=== PATIENT | male | born 1940 | race Caucasian/White ===

== ENCOUNTER 2016-12-23 17:33 | Inpatient (IN) | payer OTHER, MEDICAID ==
[~2016-12-23] VITALS: Ht 154.9 cm; Wt 44.0 kg
[2016-12-23 21:50] VITALS: BP 135/97; PULSE 115; RESP 19; TEMP 97.8; O2SAT 93
[2016-12-23] MEDS ORDERED: LEVO500T20 PO (23:44)
[2016-12-23] MEDS ORDERED: IPRA3AMP9 INH (23:44)
[2016-12-23] MEDS ORDERED: CALC500T3 PO (23:45)
[2016-12-23] MEDS ORDERED: OMEG1CAP55 PO (23:46)
[2016-12-23] MEDS ORDERED: MULT-1100 PO (23:50)
[2016-12-23] MEDS ORDERED: MEGE40TA PO (23:50)
[2016-12-23] MEDS ORDERED: MIRT30TA3 PO (23:50)
[2016-12-23 23:58] VITALS: BP 107/58; PULSE 121; RESP 20; TEMP 99.2; O2SAT 90
[2016-12-24] VITALS (8 sets, daily range): BP systolic 67–128; BP diastolic 40–67; PULSE 85–109; RESP 14–30; TEMP 98–101.2; O2SAT 90–96
[2016-12-24] MEDS: IPRATROPIUM/ALBUTEROL SULFATE 3 ML AMPUL.NEB INH SCH ×6 (03:14→23:00)
[2016-12-24 06:54] LABS: ANION GAP 3 (5-15); CALCIUM 8.4 mg/dL (8.4-11.0); CHLORIDE 108 mmol/L (98-107); GLUCOSE 91 mg/dL (70-99); POTASSIUM 3.6 mmol/L (3.5-5.1); SODIUM SERUM 137 mmol/L (136-145)
[2016-12-24 06:55] LABS: ALANINE AMINOTRANSFERASE 19 U/L (12-78); ALBUMIN 1.8 g/dL (3.4-4.8); ASPARTATE AMINOTRANSFERASE 41 U/L (10-37); CREATININE 0.76 mg/dL (0.55-1.30); PHOSPHORUS 2.9 mg/dL (2.7-4.5); TOTAL BILIRUBIN 0.6 mg/dL (0.0-1.0); TOTAL PROTEIN, SERUM 7.3 g/dL (6.4-8.3); UREA NITROGEN, BLOOD 11 mg/dL (8-21)
[2016-12-24 07:02] LABS: HEMATOCRIT 28.8 % (36-54); HEMOGLOBIN 9.7 g/dL (14.0-18.0); MEAN CORPUSCULAR HEMOGLOBIN 31 pg (27-31); MEAN CORPUSCULAR HGB CONC 34 % (32-36); MEAN CORPUSCULAR VOLUME 91 fL (79.0-98.0); PLATELET COUNT (AUTO) 329 K/uL (130-430); RED BLOOD CELL COUNT(AUTO) 3.16 MIL/uL (4.2-6.2); RED CELL DISTRIBUTION WIDTH 14.1 % (9.0-15.0); WHITE BLOOD COUNT (AUTO) 17.3 K/uL (4.8-10.8)
[2016-12-24 08:46] LABS: ATYPICAL LYMPHOCYTES % 0 % (0-0); BAND % (MANUAL) 6 % (0-6); BASOPHILS % (MANUAL) 0 % (0-2); EOSINOPHILS % (MANUAL) 0 % (0-7); LYMPHOCYTES % (MANUAL) 8 % (20-46); MONOCYTES % (MANUAL) 6 % (0-11)
[2016-12-24] MEDS ORDERED: LEVOFLOXACIN 500 MG TABLET PO SCH (09:00)
[2016-12-24] MEDS: MEGESTROL ACETATE 40 MG TABLET PO SCH ×2 (09:13→20:52)
[2016-12-24] MEDS: MULTIVITS,CA,MINERALS/IRON/FA 1 TABLET PO SCH (09:13)
[2016-12-24] MEDS: CALCIUM 500 MG/TAB PO SCH ×2 (09:13→20:51)
[2016-12-24] MEDS: OMEGA-3/DHA/EPA/FISH OIL 1 GM CAPSULE PO SCH ×2 (09:13→20:52)
[2016-12-24 12:59] LABS: BILIRUBIN,URINE 1+ (NEGATIVE); BLOOD, URINE 2+ (NEGATIVE); CLARITY/URINE HAZY (CLEAR); COLOR,URINE YELLOW (YELLOW); GLUCOSE,URINE NEGATIVE (NEGATIVE); KETONES,URINE TRACE (NEGATIVE); LEUKOCYTE ESTERASE ,URINE 3+ (NEGATIVE); NITRITE, URINE NEGATIVE (NEGATIVE); PROTEIN URINE 1+ (NEGATIVE)
[2016-12-24 13:22] LABS: BACTERIA,URINE MODERATE /HPF (None Seen); WBC,URINE >100 /HPF (0-3)
[2016-12-24 13:48] LABS: INR 1.4 (0.80-1.20); PROTHROMBIN TIME 14.9 SECS (9.5-12.5)
[2016-12-24] MEDS: D5NS 1,000 ML IV SCH (16:23)
[2016-12-24] MEDS ORDERED: ALBUMIN HUMAN 25% 200 ML IV ONE (20:30)
[2016-12-24] MEDS: MIRTAZAPINE 15 MG TABLET PO SCH (20:52)
[2016-12-24] MEDS: ACETAMINOPHEN 500 MG TABLET PO PRN (20:52)
[2016-12-24] MEDS ORDERED: metroNIDAZOLE 500 mg/NS 200 ML IV ONE (23:49)
[2016-12-24] MEDS ORDERED: CEFEPIME 1 GM/VIAL (MAXIPIME) ONE (23:49)
[2016-12-25] VITALS (25 sets, daily range): BP systolic 83–132; BP diastolic 20–90; PULSE 83–128; RESP 18–40; TEMP 98.1–101.2; O2SAT 91–100; Ht 154.9 cm; Wt 44.0 kg
[2016-12-25] MEDS: CEFEPIME 1 GM in D5W 50 ML IV SCH ×2 (00:04→05:21)
[2016-12-25] MEDS: metroNIDAZOLE 500 mg/NS 100 ML IV SCH ×4 (00:26→21:42)
[2016-12-25] MEDS ORDERED: NOREPINEPHRINE 4 MG/4 ML VIAL IV ONE ×2 (02:14→19:24)
[2016-12-25] MEDS: NOREPINEPHRINE BITARTRATE 4 MG in D5W 246 ML IV PRN ×2 (02:15→19:42)
[2016-12-25] MEDS: IPRATROPIUM/ALBUTEROL SULFATE 3 ML AMPUL.NEB INH SCH ×6 (03:48→23:42)
[2016-12-25 06:39] LABS: BASOPHILS # (AUTO) 0.1 K/uL (0.0-0.2); BASOPHILS % (AUTO) 0.3 % (0.0-2.0); EOSINOPHILS # (AUTO) 0.1 K/uL (0.0-0.4); EOSINOPHILS % (AUTO) 0.3 % (0.0-4.0); HEMOGLOBIN 9.3 g/dL (14.0-18.0); LYMPHOCYTES # (AUTO) 1.6 K/uL (1.0-5.5); LYMPHOCYTES % (AUTO) 9.4 % (20.5-51.5); MEAN CORPUSCULAR HEMOGLOBIN 30 pg (27-31); MEAN CORPUSCULAR HGB CONC 33 % (32-36); MEAN CORPUSCULAR VOLUME 89 fL (79.0-98.0); MONOCYTES % (AUTO) 5.9 % (1.7-9.3); NEUTROPHILS # (AUTO) 14.6 K/uL (1.8-7.7); NEUTROPHILS % (AUTO) 84.1 % (40.0-70.0); PLATELET COUNT (AUTO) 295 K/uL (130-430); RED BLOOD CELL COUNT(AUTO) 3.13 MIL/uL (4.2-6.2); RED CELL DISTRIBUTION WIDTH 14.2 % (9.0-15.0); WHITE BLOOD COUNT (AUTO) 17.4 K/uL (4.8-10.8)
[2016-12-25] MEDS: MULTIVITS,CA,MINERALS/IRON/FA 1 TABLET PO SCH (08:30)
[2016-12-25] MEDS: MEGESTROL ACETATE 40 MG TABLET PO SCH ×2 (08:30→21:14)
[2016-12-25] MEDS: CALCIUM 500 MG/TAB PO SCH ×2 (08:30→21:13)
[2016-12-25] MEDS: OMEGA-3/DHA/EPA/FISH OIL 1 GM CAPSULE PO SCH ×2 (09:09→21:13)
[2016-12-25] MEDS: D5NS 1,000 ML IV SCH ×2 (09:09→14:01)
[2016-12-25 09:20] LABS: % FREE PSA 15.2 % (.); FREE PSA 0.38 ng/mL; PROSTATE SPECIFIC AG TOTAL 2.5 ng/mL (0.0-4.0)
[2016-12-25] MEDS: ACETAMINOPHEN 500 MG TABLET PO PRN (12:11)
[2016-12-25] MEDS ORDERED: NS 500 ML IV ONE ×2 (13:15→18:45)
[2016-12-25] MEDS ORDERED: NACL 0.9% 1,000 ML IV ONE (13:15)
[2016-12-25] MEDS: MEROPENEM 1 GM in NS 100 ML IV SCH ×2 (14:04→21:14)
[2016-12-25] MEDS: VANCOMYCIN HCL 500 MG in NS 100 ML IV SCH (15:52)
[2016-12-25] MEDS: MIRTAZAPINE 15 MG TABLET PO SCH (21:13)
[2016-12-26] VITALS (24 sets, daily range): BP systolic 90–148; BP diastolic 35–82; PULSE 80–134; RESP 12–39; TEMP 97.7–100.3; O2SAT 90–99
[2016-12-26] MEDS: ACETAMINOPHEN 500 MG TABLET PO PRN (01:03)
[2016-12-26] MEDS: IPRATROPIUM/ALBUTEROL SULFATE 3 ML AMPUL.NEB INH SCH ×6 (03:03→23:32)
[2016-12-26] MEDS: D5NS 1,000 ML IV SCH ×3 (04:10→18:14)
[2016-12-26] MEDS: MEROPENEM 1 GM in NS 100 ML IV SCH ×3 (05:52→22:28)
[2016-12-26] MEDS: metroNIDAZOLE 500 mg/NS 100 ML IV SCH ×3 (06:24→22:54)
[2016-12-26 06:44] LABS: BASOPHILS % (AUTO) 0.2 % (0.0-2.0); EOSINOPHILS # (AUTO) 0.2 K/uL (0.0-0.4); EOSINOPHILS % (AUTO) 0.8 % (0.0-4.0); HEMATOCRIT 29.3 % (36-54); HEMOGLOBIN 9.8 g/dL (14.0-18.0); LYMPHOCYTES # (AUTO) 1.8 K/uL (1.0-5.5); LYMPHOCYTES % (AUTO) 9.3 % (20.5-51.5); MEAN CORPUSCULAR HEMOGLOBIN 31 pg (27-31); MEAN CORPUSCULAR HGB CONC 33 % (32-36); MEAN CORPUSCULAR VOLUME 94 fL (79.0-98.0); MONOCYTES # (AUTO) 1.1 K/uL (0.0-1.0); MONOCYTES % (AUTO) 5.5 % (1.7-9.3); NEUTROPHILS # (AUTO) 16.3 K/uL (1.8-7.7); NEUTROPHILS % (AUTO) 84.2 % (40.0-70.0); PLATELET COUNT (AUTO) 312 K/uL (130-430); RED BLOOD CELL COUNT(AUTO) 3.13 MIL/uL (4.2-6.2); RED CELL DISTRIBUTION WIDTH 14.7 % (9.0-15.0); WHITE BLOOD COUNT (AUTO) 19.4 K/uL (4.8-10.8)
[2016-12-26 06:56] LABS: ALANINE AMINOTRANSFERASE 13 U/L (12-78); ALBUMIN 2.2 g/dL (3.4-4.8); ANION GAP 4 (5-15); ASPARTATE AMINOTRANSFERASE 25 U/L (10-37); CALCIUM 8.2 mg/dL (8.4-11.0); CHLORIDE 112 mmol/L (98-107); CREATININE 0.71 mg/dL (0.55-1.30); GLUCOSE 116 mg/dL (70-99); POTASSIUM 3.2 mmol/L (3.5-5.1); SODIUM SERUM 141 mmol/L (136-145); TOTAL BILIRUBIN 0.4 mg/dL (0.0-1.0); TOTAL PROTEIN, SERUM 6.9 g/dL (6.4-8.3); UREA NITROGEN, BLOOD 8 mg/dL (8-21)
[2016-12-26] MEDS: MEGESTROL ACETATE 40 MG TABLET PO SCH ×2 (08:03→21:00)
[2016-12-26] MEDS: CALCIUM 500 MG/TAB PO SCH ×2 (08:03→21:00)
[2016-12-26] MEDS: OMEGA-3/DHA/EPA/FISH OIL 1 GM CAPSULE PO SCH ×2 (08:03→21:00)
[2016-12-26] MEDS: MULTIVITS,CA,MINERALS/IRON/FA 1 TABLET PO SCH (08:03)
[2016-12-26] MEDS ORDERED: KCL 20 mEq in 100 mL (PREMIX) 100 ML IV ONE (09:30)
[2016-12-26] MEDS: VANCOMYCIN HCL 500 MG in NS 100 ML IV SCH (15:57)
[2016-12-26] MEDS ORDERED: LORazepam 2 MG/ML VIAL ONE (17:58)
[2016-12-26] MEDS: LORazepam 2 MG/ML VIAL IVP PRN (18:13)
[2016-12-26] MEDS: MIRTAZAPINE 15 MG TABLET PO SCH (21:00)
[2016-12-26] MEDS ORDERED: ACETAMINOPHEN 325 MG SUPP.RECT RC PRN ×2 (21:15→22:00)
[2016-12-26] MEDS ORDERED: ACETAMINOPHEN 325 MG TABLET PO PRN (21:24)
[2016-12-26] MEDS: ACETAMINOPHEN 650 MG SUPP.RECT RC PRN (22:52)
[2016-12-27] VITALS (26 sets, daily range): BP systolic 67–148; BP diastolic 34–109; PULSE 34–144; RESP 11–47; TEMP 97.3–101.7; O2SAT 88–100
[2016-12-27] MEDS: IPRATROPIUM/ALBUTEROL SULFATE 3 ML AMPUL.NEB INH SCH ×6 (04:28→23:49)
[2016-12-27] MEDS: NOREPINEPHRINE BITARTRATE 4 MG in D5W 246 ML IV PRN (05:13)
[2016-12-27] MEDS: MEROPENEM 1 GM in NS 100 ML IV SCH ×3 (05:15→22:26)
[2016-12-27] MEDS ORDERED: NOREPINEPHRINE 4 MG/4 ML VIAL IV ONE (05:42)
[2016-12-27] MEDS: metroNIDAZOLE 500 mg/NS 100 ML IV SCH ×3 (05:52→21:15)
[2016-12-27 06:36] LABS: ANION GAP 3 (5-15); CHLORIDE 112 mmol/L (98-107); CREATININE 0.67 mg/dL (0.55-1.30); GLUCOSE 112 mg/dL (70-99); POTASSIUM 3.2 mmol/L (3.5-5.1); SODIUM SERUM 145 mmol/L (136-145); UREA NITROGEN, BLOOD 5 mg/dL (8-21)
[2016-12-27] MEDS: D5NS 1,000 ML IV SCH ×3 (06:40→22:26)
[2016-12-27 06:59] LABS: BASOPHILS # (AUTO) 0.1 K/uL (0.0-0.2); BASOPHILS % (AUTO) 0.7 % (0.0-2.0); EOSINOPHILS # (AUTO) 0.1 K/uL (0.0-0.4); EOSINOPHILS % (AUTO) 0.7 % (0.0-4.0); HEMATOCRIT 28.6 % (36-54); HEMOGLOBIN 9.6 g/dL (14.0-18.0); LYMPHOCYTES # (AUTO) 2.5 K/uL (1.0-5.5); LYMPHOCYTES % (AUTO) 14.1 % (20.5-51.5); MEAN CORPUSCULAR HEMOGLOBIN 31 pg (27-31); MEAN CORPUSCULAR HGB CONC 33 % (32-36); MEAN CORPUSCULAR VOLUME 94 fL (79.0-98.0); MONOCYTES # (AUTO) 0.9 K/uL (0.0-1.0); MONOCYTES % (AUTO) 5.1 % (1.7-9.3); NEUTROPHILS # (AUTO) 14.1 K/uL (1.8-7.7); PLATELET COUNT (AUTO) 331 K/uL (130-430); RED BLOOD CELL COUNT(AUTO) 3.05 MIL/uL (4.2-6.2); RED CELL DISTRIBUTION WIDTH 14.9 % (9.0-15.0); WHITE BLOOD COUNT (AUTO) 17.7 K/uL (4.8-10.8)
[2016-12-27] MEDS ORDERED: POTASSIUM CHLORIDE 40 MEQ in NS 250 ML IV ONE (08:30)
[2016-12-27 09:10] LABS: INR 1.4 (0.80-1.20); PROTHROMBIN TIME 14.8 SECS (9.5-12.5)
[2016-12-27] MEDS ORDERED: FUROSEMIDE 40 MG/4 ML VIAL IVP ONE (09:15)
[2016-12-27] MEDS ORDERED: CARVEDILOL 3.125 MG TABLET (COREG) PO ONE (09:30)
[2016-12-27] MEDS ORDERED: ADENOSINE 6MG/2ML VIAL ONE (09:45)
[2016-12-27] MEDS ORDERED: METOPROLOL TARTRATE 5 MG/5 ML VIAL IVP PRN (09:45)
[2016-12-27] MEDS ORDERED: ADENOSINE 6MG/2ML VIAL IVP ONE (09:45)
[2016-12-27] MEDS: MULTIVITS,CA,MINERALS/IRON/FA 1 TABLET PO SCH (09:49)
[2016-12-27] MEDS: CALCIUM 500 MG/TAB PO SCH ×2 (09:49→21:00)
[2016-12-27] MEDS: MEGESTROL ACETATE 40 MG TABLET PO SCH ×2 (09:49→21:00)
[2016-12-27] MEDS: OMEGA-3/DHA/EPA/FISH OIL 1 GM CAPSULE PO SCH ×2 (09:52→21:00)
[2016-12-27 09:59] LABS: NEUTROPHILS % (AUTO) 79.4 % (40.0-70.0)
[2016-12-27] MEDS: CARVEDILOL 3.125 MG TABLET (COREG) PO SCH (10:42)
[2016-12-27] MEDS: PHENYLEPHRINE HCL 30 MG in NS 247 ML IV PRN ×2 (13:32→19:04)
[2016-12-27] MEDS: ACETAMINOPHEN 650 MG SUPP.RECT RC PRN (13:48)
[2016-12-27] MEDS ORDERED: ALBUMIN HUMAN 25% 100 ML IV ONE (14:45)
[2016-12-27] MEDS: VANCOMYCIN HCL 500 MG in NS 100 ML IV SCH (16:23)
[2016-12-27] MEDS: methylPREDNISolone SOD SUCC/PF 62.5 MG/ML VIAL IVP SCH ×2 (18:16→23:17)
[2016-12-27] MEDS: GENTAMICIN 100 MG/ ISO-OSM 50 ML PREMIX IV SCH (18:17)
[2016-12-27] MEDS: MIRTAZAPINE 15 MG TABLET PO SCH (21:00)
[2016-12-27] MEDS: LORazepam 2 MG/ML VIAL IVP PRN (23:18)
[2016-12-28] VITALS (28 sets, daily range): BP systolic 85–129; BP diastolic 41–68; PULSE 72–98; RESP 12–31; TEMP 97.8–99.3; O2SAT 88–100
[2016-12-28] MEDS: PHENYLEPHRINE HCL 30 MG in NS 247 ML IV PRN ×4 (01:44→21:51)
[2016-12-28] MEDS: IPRATROPIUM/ALBUTEROL SULFATE 3 ML AMPUL.NEB INH SCH ×5 (04:05→23:16)
[2016-12-28] MEDS: methylPREDNISolone SOD SUCC/PF 62.5 MG/ML VIAL IVP SCH ×4 (05:10→23:50)
[2016-12-28] MEDS: metroNIDAZOLE 500 mg/NS 100 ML IV SCH ×3 (05:11→22:36)
[2016-12-28 06:18] LABS: HEMATOCRIT 30.2 % (36-54); HEMOGLOBIN 9.9 g/dL (14.0-18.0); MEAN CORPUSCULAR HEMOGLOBIN 30 pg (27-31); MEAN CORPUSCULAR HGB CONC 33 % (32-36); MEAN CORPUSCULAR VOLUME 93 fL (79.0-98.0); PLATELET COUNT (AUTO) 388 K/uL (130-430); RED BLOOD CELL COUNT(AUTO) 3.26 MIL/uL (4.2-6.2); RED CELL DISTRIBUTION WIDTH 15.2 % (9.0-15.0); WHITE BLOOD COUNT (AUTO) 24.8 K/uL (4.8-10.8)
[2016-12-28] MEDS: MEROPENEM 1 GM in NS 100 ML IV SCH ×3 (06:23→21:26)
[2016-12-28 06:28] LABS: ANION GAP 8 (5-15); CALCIUM 8.1 mg/dL (8.4-11.0); CHLORIDE 114 mmol/L (98-107); CREATININE 0.66 mg/dL (0.55-1.30); GLUCOSE 154 mg/dL (70-99); POTASSIUM 3.9 mmol/L (3.5-5.1); SODIUM SERUM 151 mmol/L (136-145); UREA NITROGEN, BLOOD 9 mg/dL (8-21)
[2016-12-28 06:40] LABS: ALANINE AMINOTRANSFERASE 15 U/L (12-78); ALBUMIN 2.4 g/dL (3.4-4.8); ASPARTATE AMINOTRANSFERASE 30 U/L (10-37); TOTAL BILIRUBIN 0.3 mg/dL (0.0-1.0); TOTAL PROTEIN, SERUM 6.7 g/dL (6.4-8.3)
[2016-12-28 08:03] LABS: ATYPICAL LYMPHOCYTES % 0 % (0-0); BAND % (MANUAL) 0 % (0-6); BASOPHILS % (MANUAL) 0 % (0-2); EOSINOPHILS % (MANUAL) 0 % (0-7); LYMPHOCYTES % (MANUAL) 4 % (20-46); MONOCYTES % (MANUAL) 0 % (0-11)
[2016-12-28] MEDS: CARVEDILOL 3.125 MG TABLET (COREG) PO SCH ×2 (09:06→20:23)
[2016-12-28] MEDS: 0.45% NACL 1,000 ML IV SCH (11:13)
[2016-12-28] MEDS: OMEGA-3/DHA/EPA/FISH OIL 1 GM CAPSULE PO SCH ×2 (12:32→20:22)
[2016-12-28] MEDS: MEGESTROL ACETATE 40 MG TABLET PO SCH ×2 (12:33→20:22)
[2016-12-28] MEDS: CALCIUM 500 MG/TAB PO SCH ×2 (14:08→20:22)
[2016-12-28] MEDS: MULTIVITS,CA,MINERALS/IRON/FA 1 TABLET PO SCH (14:09)
[2016-12-28 15:28] LABS: ABG TOTAL HEMOGLOBIN 9.6 G/dL (12.0-18.0); BLOOD GAS BASE EXCESS 1.5 mmol/L (-3.0-3.0); BLOOD GAS PH 7.266 (7.350-7.450); BLOOD O2Hb% 97.1 % (94.0-97.0)
[2016-12-28 15:29] LABS: BLOOD GAS HHB 1.7 % (0.0-6.0)
[2016-12-28] MEDS: VANCOMYCIN HCL 500 MG in NS 100 ML IV SCH (16:30)
[2016-12-28] MEDS: GENTAMICIN 100 MG/ ISO-OSM 50 ML PREMIX IV SCH (17:34)
[2016-12-28 17:40] LABS: ABG TOTAL HEMOGLOBIN 9.6 G/dL (12.0-18.0); BLOOD GAS COHb% 0.7 % (0.5-1.5); BLOOD GAS HHB 8.2 % (0.0-6.0); BLOOD GAS PH 7.332 (7.350-7.450); BLOOD O2Hb% 90.8 % (94.0-97.0)
[2016-12-28] MEDS: MIRTAZAPINE 15 MG TABLET PO SCH (20:23)
[2016-12-29] VITALS (32 sets, daily range): BP systolic 96–148; BP diastolic 38–81; PULSE 70–88; RESP 10–37; TEMP 97–98.6; O2SAT 93–100
[2016-12-29] MEDS: PHENYLEPHRINE HCL 30 MG in NS 247 ML IV PRN ×2 (03:13→10:50)
[2016-12-29] MEDS: IPRATROPIUM/ALBUTEROL SULFATE 3 ML AMPUL.NEB INH SCH ×6 (03:40→23:25)
[2016-12-29] MEDS: MEROPENEM 1 GM in NS 100 ML IV SCH (05:19)
[2016-12-29] MEDS: methylPREDNISolone SOD SUCC/PF 62.5 MG/ML VIAL IVP SCH ×3 (05:57→21:20)
[2016-12-29] MEDS: metroNIDAZOLE 500 mg/NS 100 ML IV SCH (05:58)
[2016-12-29 06:07] LABS: ALANINE AMINOTRANSFERASE 14 U/L (12-78); ASPARTATE AMINOTRANSFERASE 17 U/L (10-37); CALCIUM 8.1 mg/dL (8.4-11.0); CHLORIDE 116 mmol/L (98-107); CREATININE 0.66 mg/dL (0.55-1.30); GLUCOSE 185 mg/dL (70-99); POTASSIUM 3.7 mmol/L (3.5-5.1); SODIUM SERUM 145 mmol/L (136-145); TOTAL BILIRUBIN 0.3 mg/dL (0.0-1.0); TOTAL PROTEIN, SERUM 6.1 g/dL (6.4-8.3); UREA NITROGEN, BLOOD 16 mg/dL (8-21)
[2016-12-29 06:10] LABS: HEMATOCRIT 28.6 % (36-54); HEMOGLOBIN 9.1 g/dL (14.0-18.0); MEAN CORPUSCULAR HEMOGLOBIN 29 pg (27-31); MEAN CORPUSCULAR HGB CONC 32 % (32-36); MEAN CORPUSCULAR VOLUME 92 fL (79.0-98.0); PLATELET COUNT (AUTO) 347 K/uL (130-430); RED BLOOD CELL COUNT(AUTO) 3.11 MIL/uL (4.2-6.2); RED CELL DISTRIBUTION WIDTH 15.5 % (9.0-15.0)
[2016-12-29 06:16] LABS: ANION GAP < 3 (5-15)
[2016-12-29 06:52] LABS: WHITE BLOOD COUNT (AUTO) 30.9 K/uL (4.8-10.8)
[2016-12-29 07:35] LABS: BASOPHILS % (MANUAL) 0 % (0-2); EOSINOPHILS % (MANUAL) 0 % (0-7); LYMPHOCYTES % (MANUAL) 6 % (20-46); MONOCYTES % (MANUAL) 5 % (0-11)
[2016-12-29] MEDS: MULTIVITS,CA,MINERALS/IRON/FA 1 TABLET PO SCH (08:29)
[2016-12-29] MEDS: OMEGA-3/DHA/EPA/FISH OIL 1 GM CAPSULE PO SCH ×2 (08:29→21:17)
[2016-12-29] MEDS: CALCIUM 500 MG/TAB PO SCH ×2 (08:29→21:19)
[2016-12-29] MEDS: CARVEDILOL 3.125 MG TABLET (COREG) PO SCH ×2 (08:30→21:18)
[2016-12-29] MEDS: MEGESTROL ACETATE 40 MG TABLET PO SCH ×2 (08:30→21:19)
[2016-12-29 10:25] LABS: BLOOD GAS PH 7.387 (7.350-7.450)
[2016-12-29 10:26] LABS: ABG TOTAL HEMOGLOBIN 9.3 G/dL (12.0-18.0); BLOOD GAS BASE EXCESS 5.8 mmol/L (-3.0-3.0); BLOOD GAS COHb% 1.2 % (0.5-1.5); BLOOD GAS HHB 4.4 % (0.0-6.0); BLOOD O2Hb% 94.1 % (94.0-97.0)
[2016-12-29] MEDS: 0.45% NACL 1,000 ML IV SCH (10:44)
[2016-12-29] MEDS: PIPERACILLIN/TAZO 4.5GM/DEX-IS 100 ML IV SCH ×2 (13:43→22:12)
[2016-12-29] MEDS: VANCOMYCIN HCL 500 MG in NS 100 ML IV SCH (16:18)
[2016-12-29] MEDS: GENTAMICIN 100 MG/ ISO-OSM 50 ML PREMIX IV SCH (17:24)
[2016-12-29] MEDS: MIRTAZAPINE 15 MG TABLET PO SCH (21:17)
[2016-12-30] VITALS (28 sets, daily range): BP systolic 109–145; BP diastolic 56–92; PULSE 73–99; RESP 12–36; TEMP 97.4–99; O2SAT 91–100
[2016-12-30] MEDS: IPRATROPIUM/ALBUTEROL SULFATE 3 ML AMPUL.NEB INH SCH ×6 (04:20→23:25)
[2016-12-30] MEDS: PIPERACILLIN/TAZO 4.5GM/DEX-IS 100 ML IV SCH ×3 (05:49→21:20)
[2016-12-30] MEDS: methylPREDNISolone SOD SUCC/PF 62.5 MG/ML VIAL IVP SCH ×3 (05:50→21:19)
[2016-12-30 06:22] LABS: ALANINE AMINOTRANSFERASE 15 U/L (12-78); ALBUMIN 2.2 g/dL (3.4-4.8); ASPARTATE AMINOTRANSFERASE 16 U/L (10-37); CALCIUM 8.2 mg/dL (8.4-11.0); CHLORIDE 115 mmol/L (98-107); CREATININE 0.69 mg/dL (0.55-1.30); GLUCOSE 127 mg/dL (70-99); POTASSIUM 3.6 mmol/L (3.5-5.1); SODIUM SERUM 147 mmol/L (136-145); TOTAL BILIRUBIN 0.4 mg/dL (0.0-1.0); TOTAL PROTEIN, SERUM 6.4 g/dL (6.4-8.3); UREA NITROGEN, BLOOD 19 mg/dL (8-21)
[2016-12-30 06:24] LABS: BASOPHILS % (AUTO) 0.1 % (0.0-2.0); HEMATOCRIT 27.1 % (36-54); HEMOGLOBIN 8.9 g/dL (14.0-18.0); LYMPHOCYTES # (AUTO) 1.5 K/uL (1.0-5.5); LYMPHOCYTES % (AUTO) 7.5 % (20.5-51.5); MEAN CORPUSCULAR HEMOGLOBIN 31 pg (27-31); MEAN CORPUSCULAR HGB CONC 33 % (32-36); MEAN CORPUSCULAR VOLUME 94 fL (79.0-98.0); MONOCYTES # (AUTO) 0.3 K/uL (0.0-1.0); MONOCYTES % (AUTO) 1.7 % (1.7-9.3); NEUTROPHILS # (AUTO) 18.6 K/uL (1.8-7.7); NEUTROPHILS % (AUTO) 90.7 % (40.0-70.0); PLATELET COUNT (AUTO) 281 K/uL (130-430); RED BLOOD CELL COUNT(AUTO) 2.87 MIL/uL (4.2-6.2); RED CELL DISTRIBUTION WIDTH 15.2 % (9.0-15.0); WHITE BLOOD COUNT (AUTO) 20.4 K/uL (4.8-10.8)
[2016-12-30 06:57] LABS: ANION GAP < 3 (5-15)
[2016-12-30] MEDS: MULTIVITS,CA,MINERALS/IRON/FA 1 TABLET PO SCH (09:00)
[2016-12-30] MEDS: CALCIUM 500 MG/TAB PO SCH ×2 (09:00→21:18)
[2016-12-30] MEDS: CARVEDILOL 3.125 MG TABLET (COREG) PO SCH ×2 (09:00→21:18)
[2016-12-30] MEDS: MEGESTROL ACETATE 40 MG TABLET PO SCH ×2 (09:00→21:17)
[2016-12-30] MEDS: OMEGA-3/DHA/EPA/FISH OIL 1 GM CAPSULE PO SCH ×2 (09:00→21:18)
[2016-12-30] MEDS: 0.45% NACL 1,000 ML IV SCH (10:18)
[2016-12-30] MEDS: VANCOMYCIN HCL 500 MG in NS 100 ML IV SCH (15:27)
[2016-12-30] MEDS: GENTAMICIN 100 MG/ ISO-OSM 50 ML PREMIX IV SCH (17:00)
[2016-12-30] MEDS: MIRTAZAPINE 15 MG TABLET PO SCH (21:18)
[2016-12-31] VITALS (21 sets, daily range): BP systolic 110–156; BP diastolic 61–82; PULSE 67–82; RESP 14–31; TEMP 97.7–98.2; O2SAT 26–100
[2016-12-31] MEDS: IPRATROPIUM/ALBUTEROL SULFATE 3 ML AMPUL.NEB INH SCH ×6 (03:48→23:54)
[2016-12-31] MEDS: PIPERACILLIN/TAZO 4.5GM/DEX-IS 100 ML IV SCH ×2 (05:21→13:08)
[2016-12-31] MEDS: methylPREDNISolone SOD SUCC/PF 62.5 MG/ML VIAL IVP SCH ×3 (05:22→21:30)
[2016-12-31 06:23] LABS: ANION GAP 1 (5-15); CALCIUM 8.3 mg/dL (8.4-11.0); CHLORIDE 110 mmol/L (98-107); GLUCOSE 103 mg/dL (70-99); POTASSIUM 3.4 mmol/L (3.5-5.1); SODIUM SERUM 146 mmol/L (136-145); UREA NITROGEN, BLOOD 16 mg/dL (8-21)
[2016-12-31 06:30] LABS: EOSINOPHILS % (AUTO) 0.1 % (0.0-4.0); HEMATOCRIT 26.4 % (36-54); HEMOGLOBIN 8.7 g/dL (14.0-18.0); LYMPHOCYTES # (AUTO) 1.1 K/uL (1.0-5.5); MEAN CORPUSCULAR HEMOGLOBIN 31 pg (27-31); MEAN CORPUSCULAR HGB CONC 33 % (32-36); MEAN CORPUSCULAR VOLUME 94 fL (79.0-98.0); MONOCYTES # (AUTO) 0.3 K/uL (0.0-1.0); MONOCYTES % (AUTO) 1.7 % (1.7-9.3); NEUTROPHILS # (AUTO) 16.6 K/uL (1.8-7.7); PLATELET COUNT (AUTO) 253 K/uL (130-430); RED BLOOD CELL COUNT(AUTO) 2.81 MIL/uL (4.2-6.2); RED CELL DISTRIBUTION WIDTH 14.9 % (9.0-15.0)
[2016-12-31] MEDS: CARVEDILOL 3.125 MG TABLET (COREG) PO SCH ×2 (08:41→21:28)
[2016-12-31] MEDS: MULTIVITS,CA,MINERALS/IRON/FA 1 TABLET PO SCH (08:41)
[2016-12-31] MEDS: CALCIUM 500 MG/TAB PO SCH ×2 (08:41→21:29)
[2016-12-31] MEDS: OMEGA-3/DHA/EPA/FISH OIL 1 GM CAPSULE PO SCH ×2 (08:44→21:28)
[2016-12-31] MEDS: MEGESTROL ACETATE 40 MG TABLET PO SCH ×2 (08:46→21:29)
[2016-12-31 09:46] LABS: NEUTROPHILS % (AUTO) 92.2 % (40.0-70.0)
[2016-12-31] MEDS: 0.45% NACL 1,000 ML IV SCH (14:31)
[2016-12-31] MEDS: VANCOMYCIN HCL 500 MG in NS 100 ML IV SCH (14:31)
[2016-12-31 14:43] LABS: GENTAMICIN,RANDOM 0.7 ug/mL; VANCOMYCIN,TROUGH 3.8 ug/mL (5.0-10.0)
[2016-12-31] MEDS ORDERED: POTASSIUM CHLORIDE 20 MEQ/PKT PACKET PO ONE (15:15)
[2016-12-31] MEDS: GENTAMICIN 100 MG/ ISO-OSM 50 ML PREMIX IV SCH (16:10)
[2016-12-31] MEDS: MIRTAZAPINE 15 MG TABLET PO SCH (21:30)
[2017-01-01] VITALS (10 sets, daily range): BP systolic 113–148; BP diastolic 58–79; PULSE 64–97; RESP 14–20; TEMP 97–98.7; O2SAT 93–99
[2017-01-01] MEDS ORDERED: VANCOMYCIN HCL 500 MG in NS 100 ML IV SCH (03:00)
[2017-01-01] MEDS: methylPREDNISolone SOD SUCC/PF 62.5 MG/ML VIAL IVP SCH ×3 (06:23→22:13)
[2017-01-01 07:00] LABS: HEMATOCRIT 26.4 % (36-54); HEMOGLOBIN 8.7 g/dL (14.0-18.0); MEAN CORPUSCULAR HEMOGLOBIN 31 pg (27-31); MEAN CORPUSCULAR HGB CONC 33 % (32-36); MEAN CORPUSCULAR VOLUME 92 fL (79.0-98.0); PLATELET COUNT (AUTO) 274 K/uL (130-430); RED BLOOD CELL COUNT(AUTO) 2.85 MIL/uL (4.2-6.2); RED CELL DISTRIBUTION WIDTH 15.1 % (9.0-15.0); WHITE BLOOD COUNT (AUTO) 19.9 K/uL (4.8-10.8)
[2017-01-01] MEDS: IPRATROPIUM/ALBUTEROL SULFATE 3 ML AMPUL.NEB INH SCH ×5 (07:21→23:01)
[2017-01-01 07:22] LABS: ANION GAP 1 (5-15); CALCIUM 8.3 mg/dL (8.4-11.0); CHLORIDE 106 mmol/L (98-107); CREATININE 0.45 mg/dL (0.55-1.30); GLUCOSE 106 mg/dL (70-99); POTASSIUM 3.7 mmol/L (3.5-5.1); SODIUM SERUM 142 mmol/L (136-145); UREA NITROGEN, BLOOD 15 mg/dL (8-21)
[2017-01-01 08:41] LABS: ATYPICAL LYMPHOCYTES % 0 % (0-0); BAND % (MANUAL) 0 % (0-6); BASOPHILS % (MANUAL) 0 % (0-2); EOSINOPHILS % (MANUAL) 0 % (0-7); LYMPHOCYTES % (MANUAL) 9 % (20-46); MONOCYTES % (MANUAL) 3 % (0-11)
[2017-01-01] MEDS: CALCIUM 500 MG/TAB PO SCH ×2 (09:14→20:47)
[2017-01-01] MEDS: OMEGA-3/DHA/EPA/FISH OIL 1 GM CAPSULE PO SCH ×2 (09:15→20:47)
[2017-01-01] MEDS: MEGESTROL ACETATE 40 MG TABLET PO SCH ×2 (09:15→20:47)
[2017-01-01] MEDS: MULTIVITS,CA,MINERALS/IRON/FA 1 TABLET PO SCH (09:15)
[2017-01-01] MEDS: CARVEDILOL 3.125 MG TABLET (COREG) PO SCH ×2 (09:15→20:46)
[2017-01-01] MEDS: 0.45% NACL 1,000 ML IV SCH (14:02)
[2017-01-01] MEDS ORDERED: FUROSEMIDE 40 MG/4 ML VIAL IVP ONE (16:00)
[2017-01-01] MEDS: GENTAMICIN 100 MG/ ISO-OSM 50 ML PREMIX IV SCH (17:11)
[2017-01-01] MEDS: MIRTAZAPINE 15 MG TABLET PO SCH (20:47)
[2017-01-01] MEDS ORDERED: AMPICILLIN SODIUM/SULBACTAM NA 1.5 GM VIAL ONE (22:33)
[2017-01-01] MEDS: AMPICILLIN SODIUM/SULBACTAM NA 1.5 GM in NS 50 ML IV SCH (23:20)
[2017-01-02] VITALS (8 sets, daily range): BP systolic 120–134; BP diastolic 25–75; PULSE 65–99; RESP 20–22; TEMP 97.2–98.6; O2SAT 93–100
[2017-01-02] MEDS: IPRATROPIUM/ALBUTEROL SULFATE 3 ML AMPUL.NEB INH SCH ×6 (03:00→23:15)
[2017-01-02] MEDS: AMPICILLIN SODIUM/SULBACTAM NA 1.5 GM in NS 50 ML IV SCH ×3 (05:20→18:09)
[2017-01-02] MEDS: methylPREDNISolone SOD SUCC/PF 62.5 MG/ML VIAL IVP SCH ×3 (05:24→21:29)
[2017-01-02 08:03] LABS: BASOPHILS % (AUTO) 0.1 % (0.0-2.0); EOSINOPHILS % (AUTO) 0.1 % (0.0-4.0); HEMOGLOBIN 8.8 g/dL (14.0-18.0); LYMPHOCYTES # (AUTO) 2.3 K/uL (1.0-5.5)
[2017-01-02 08:06] LABS: CHLORIDE 98 mmol/L (98-107); GLUCOSE 90 mg/dL (70-99); POTASSIUM 3.6 mmol/L (3.5-5.1); SODIUM SERUM 134 mmol/L (136-145); UREA NITROGEN, BLOOD 13 mg/dL (8-21)
[2017-01-02 08:07] LABS: HEMATOCRIT 26.3 % (36-54); LYMPHOCYTES % (AUTO) 10.4 % (20.5-51.5); MEAN CORPUSCULAR HEMOGLOBIN 30 pg (27-31); MEAN CORPUSCULAR HGB CONC 34 % (32-36); MEAN CORPUSCULAR VOLUME 89 fL (79.0-98.0); MONOCYTES # (AUTO) 0.6 K/uL (0.0-1.0); MONOCYTES % (AUTO) 2.6 % (1.7-9.3); NEUTROPHILS # (AUTO) 19.5 K/uL (1.8-7.7); NEUTROPHILS % (AUTO) 86.8 % (40.0-70.0); PLATELET COUNT (AUTO) 306 K/uL (130-430); RED BLOOD CELL COUNT(AUTO) 2.97 MIL/uL (4.2-6.2); RED CELL DISTRIBUTION WIDTH 14.4 % (9.0-15.0); WHITE BLOOD COUNT (AUTO) 22.4 K/uL (4.8-10.8)
[2017-01-02 08:09] LABS: ANION GAP < 3 (5-15)
[2017-01-02] MEDS: OMEGA-3/DHA/EPA/FISH OIL 1 GM CAPSULE PO SCH ×2 (09:43→21:29)
[2017-01-02] MEDS: CALCIUM 500 MG/TAB PO SCH ×2 (09:44→21:29)
[2017-01-02] MEDS: CARVEDILOL 3.125 MG TABLET (COREG) PO SCH ×3 (09:44→21:32)
[2017-01-02] MEDS: MULTIVITS,CA,MINERALS/IRON/FA 1 TABLET PO SCH (09:44)
[2017-01-02] MEDS: MEGESTROL ACETATE 40 MG TABLET PO SCH ×2 (09:45→21:29)
[2017-01-02] MEDS: 0.45% NACL 1,000 ML IV SCH (17:29)
[2017-01-02] MEDS: GENTAMICIN 100 MG/ ISO-OSM 50 ML PREMIX IV SCH (17:30)
[2017-01-02] MEDS ORDERED: FUROSEMIDE 40 MG/4 ML VIAL IVP ONE (19:15)
[2017-01-02] MEDS: MIRTAZAPINE 15 MG TABLET PO SCH (21:29)
[2017-01-03] VITALS (11 sets, daily range): BP systolic 95–141; BP diastolic 55–92; PULSE 65–101; RESP 16–20; TEMP 96.3–98.6; O2SAT 90–100
[2017-01-03] MEDS: AMPICILLIN SODIUM/SULBACTAM NA 1.5 GM in NS 50 ML IV SCH ×4 (00:50→18:08)
[2017-01-03] MEDS: IPRATROPIUM/ALBUTEROL SULFATE 3 ML AMPUL.NEB INH SCH ×6 (03:40→22:55)
[2017-01-03] MEDS: methylPREDNISolone SOD SUCC/PF 62.5 MG/ML VIAL IVP SCH ×3 (05:09→22:08)
[2017-01-03 08:25] LABS: ASPARTATE AMINOTRANSFERASE 33 U/L (10-37); CALCIUM 8.5 mg/dL (8.4-11.0); CHLORIDE 97 mmol/L (98-107); CREATININE 0.56 mg/dL (0.55-1.30); GLUCOSE 104 mg/dL (70-99); POTASSIUM 4.4 mmol/L (3.5-5.1); SODIUM SERUM 133 mmol/L (136-145); TOTAL BILIRUBIN 0.6 mg/dL (0.0-1.0); UREA NITROGEN, BLOOD 14 mg/dL (8-21)
[2017-01-03 08:26] LABS: ALANINE AMINOTRANSFERASE 37 U/L (12-78); ALBUMIN 2.4 g/dL (3.4-4.8); TOTAL PROTEIN, SERUM 7.3 g/dL (6.4-8.3)
[2017-01-03 08:47] LABS: ANION GAP < 3 (5-15)
[2017-01-03 09:25] LABS: ABG TOTAL HEMOGLOBIN 10.1 G/dL (12.0-18.0); BLOOD GAS BASE EXCESS 6.8 mmol/L (-3.0-3.0); BLOOD GAS COHb% 0.8 % (0.5-1.5); BLOOD O2Hb% 88.7 % (94.0-97.0)
[2017-01-03 09:26] LABS: BLOOD GAS HHB 10.2 % (0.0-6.0)
[2017-01-03] MEDS: OMEGA-3/DHA/EPA/FISH OIL 1 GM CAPSULE PO SCH ×2 (10:07→21:36)
[2017-01-03] MEDS: CALCIUM 500 MG/TAB PO SCH ×2 (10:07→21:36)
[2017-01-03] MEDS: CARVEDILOL 3.125 MG TABLET (COREG) PO SCH ×2 (10:08→21:00)
[2017-01-03] MEDS: MEGESTROL ACETATE 40 MG TABLET PO SCH ×2 (10:08→22:05)
[2017-01-03] MEDS: MULTIVITS,CA,MINERALS/IRON/FA 1 TABLET PO SCH (10:09)
[2017-01-03] MEDS: 0.45% NACL 1,000 ML IV SCH (18:13)
[2017-01-03] MEDS: MIRTAZAPINE 15 MG TABLET PO SCH (21:36)
[2017-01-04] VITALS (7 sets, daily range): BP systolic 114–147; BP diastolic 54–88; PULSE 56–88; RESP 19–21; TEMP 97.5–98.8; O2SAT 93–99
[2017-01-04] MEDS: AMPICILLIN SODIUM/SULBACTAM NA 1.5 GM in NS 50 ML IV SCH ×4 (00:19→17:45)
[2017-01-04] MEDS: 0.45% NACL 1,000 ML IV SCH (00:24)
[2017-01-04] MEDS: IPRATROPIUM/ALBUTEROL SULFATE 3 ML AMPUL.NEB INH SCH ×4 (04:03→19:56)
[2017-01-04] MEDS: methylPREDNISolone SOD SUCC/PF 62.5 MG/ML VIAL IVP SCH ×3 (06:42→22:29)
[2017-01-04 07:33] LABS: HEMATOCRIT 27.3 % (36-54); HEMOGLOBIN 8.9 g/dL (14.0-18.0); MEAN CORPUSCULAR HEMOGLOBIN 30 pg (27-31); MEAN CORPUSCULAR HGB CONC 33 % (32-36); MEAN CORPUSCULAR VOLUME 91 fL (79.0-98.0); PLATELET COUNT (AUTO) 364 K/uL (130-430); RED BLOOD CELL COUNT(AUTO) 3.02 MIL/uL (4.2-6.2); RED CELL DISTRIBUTION WIDTH 14.9 % (9.0-15.0); WHITE BLOOD COUNT (AUTO) 29.4 K/uL (4.8-10.8)
[2017-01-04 07:50] LABS: ANION GAP -2 (5-15); CALCIUM 8.2 mg/dL (8.4-11.0); CHLORIDE 100 mmol/L (98-107); CREATININE 0.44 mg/dL (0.55-1.30); GLUCOSE 108 mg/dL (70-99); POTASSIUM 3.8 mmol/L (3.5-5.1); SODIUM SERUM 134 mmol/L (136-145); UREA NITROGEN, BLOOD 13 mg/dL (8-21)
[2017-01-04 08:16] LABS: BASOPHILS % (MANUAL) 0 % (0-2); EOSINOPHILS % (MANUAL) 0 % (0-7); LYMPHOCYTES % (MANUAL) 3 % (20-46); MONOCYTES % (MANUAL) 2 % (0-11)
[2017-01-04] MEDS: OMEGA-3/DHA/EPA/FISH OIL 1 GM CAPSULE PO SCH ×2 (09:17→22:29)
[2017-01-04] MEDS: MULTIVITS,CA,MINERALS/IRON/FA 1 TABLET PO SCH (09:18)
[2017-01-04] MEDS: MEGESTROL ACETATE 40 MG TABLET PO SCH ×2 (09:18→22:25)
[2017-01-04] MEDS: CALCIUM 500 MG/TAB PO SCH ×2 (09:18→22:29)
[2017-01-04] MEDS: CARVEDILOL 3.125 MG TABLET (COREG) PO SCH ×2 (09:19→22:29)
[2017-01-04] MEDS: MIRTAZAPINE 15 MG TABLET PO SCH (22:25)
[2017-01-05] VITALS (10 sets, daily range): BP systolic 112–139; BP diastolic 55–73; PULSE 61–91; RESP 16–20; TEMP 98–99.1; O2SAT 92–100
[2017-01-05] MEDS: AMPICILLIN SODIUM/SULBACTAM NA 1.5 GM in NS 50 ML IV SCH ×4 (00:05→18:30)
[2017-01-05] MEDS: IPRATROPIUM/ALBUTEROL SULFATE 3 ML AMPUL.NEB INH SCH ×4 (00:40→19:35)
[2017-01-05] MEDS: 0.45% NACL 1,000 ML IV SCH (04:39)
[2017-01-05] MEDS: methylPREDNISolone SOD SUCC/PF 62.5 MG/ML VIAL IVP SCH (05:44)
[2017-01-05 07:37] LABS: HEMATOCRIT 29.3 % (36-54); HEMOGLOBIN 9.7 g/dL (14.0-18.0); MEAN CORPUSCULAR HEMOGLOBIN 30 pg (27-31); MEAN CORPUSCULAR HGB CONC 33 % (32-36); MEAN CORPUSCULAR VOLUME 91 fL (79.0-98.0); PLATELET COUNT (AUTO) 427 K/uL (130-430); RED BLOOD CELL COUNT(AUTO) 3.23 MIL/uL (4.2-6.2); RED CELL DISTRIBUTION WIDTH 15.3 % (9.0-15.0)
[2017-01-05 07:58] LABS: WHITE BLOOD COUNT (AUTO) 21.2 K/uL (4.8-10.8)
[2017-01-05] MEDS: OMEGA-3/DHA/EPA/FISH OIL 1 GM CAPSULE PO SCH (09:31)
[2017-01-05] MEDS: CALCIUM 500 MG/TAB PO SCH (09:32)
[2017-01-05] MEDS: MEGESTROL ACETATE 40 MG TABLET PO SCH (09:33)
[2017-01-05] MEDS: MULTIVITS,CA,MINERALS/IRON/FA 1 TABLET PO SCH (09:33)
[2017-01-05] MEDS: CARVEDILOL 3.125 MG TABLET (COREG) PO SCH (09:35)
[2017-01-05 09:53] LABS: ATYPICAL LYMPHOCYTES % 0 % (0-0); BAND % (MANUAL) 0 % (0-6); BASOPHILS % (MANUAL) 0 % (0-2); EOSINOPHILS % (MANUAL) 0 % (0-7); LYMPHOCYTES % (MANUAL) 7 % (20-46); MONOCYTES % (MANUAL) 2 % (0-11)
[2017-01-05] MEDS ORDERED: methylPREDNISolone SOD SUCC 40 MG/ML VIAL IVP ONE (13:15)
[2017-01-05] MEDS ORDERED: methylPREDNISolone SOD SUCC 40 MG/ML VIAL IVP SCH (21:00)
== END 2017-01-05 20:00 | DRG 871 ==
LOC: SMU 22:10 → STU 22:34 → SIC 12-24 22:10 → STU 12-31 15:34 → SMU 01-02 16:48 → STU 01-05 13:33
PROVIDERS: ADMIT Internal Medicine; ATTEND Internal Medicine
PROC: 02HV33Z Insertion of Infusion Device into Superior Vena Cava, Percutaneous Approach (ICD-10-PCS; principal; 2016-12-27)
PROC: B548ZZA Ultrasonography of Superior Vena Cava, Guidance (ICD-10-PCS; 2016-12-27)
PROC: 5A09457 Assistance with Respiratory Ventilation, 24-96 Consecutive Hours, Continuous Positive Airway Pressure (ICD-10-PCS; 2016-12-28)
PROC: 0T9B80Z Drainage of Bladder with Drainage Device, Via Natural or Artificial Opening Endoscopic (ICD-10-PCS; 2017-01-03)
DX: A41.9 Sepsis, unspecified organism (principal); R65.21 Severe sepsis with septic shock; J15.8 Pneumonia due to other specified bacteria; J96.90 Respiratory failure, unspecified, unspecified whether with hypoxia or hypercapnia; E43 Unspecified severe protein-calorie malnutrition; N39.0 Urinary tract infection, site not specified; N13.2 Hydronephrosis with renal and ureteral calculous obstruction; Z68.1 Body mass index [BMI] 19.9 or less, adult; N13.8 Other obstructive and reflux uropathy; I13.0 Hypertensive heart and chronic kidney disease with heart failure and stage 1 through stage 4 chronic kidney disease, or unspecified chronic kidney disease; J44.0 Chronic obstructive pulmonary disease with (acute) lower respiratory infection; F20.9 Schizophrenia, unspecified; M81.0 Age-related osteoporosis without current pathological fracture; R62.7 Adult failure to thrive; E78.5 Hyperlipidemia, unspecified; N40.1 Benign prostatic hyperplasia with lower urinary tract symptoms; D63.8 Anemia in other chronic diseases classified elsewhere; J84.10 Pulmonary fibrosis, unspecified; N18.9 Chronic kidney disease, unspecified; R13.10 Dysphagia, unspecified; M19.90 Unspecified osteoarthritis, unspecified site; I50.9 Heart failure, unspecified; Y95 Nosocomial condition; G30.9 Alzheimer's disease, unspecified; F02.80 Dementia in other diseases classified elsewhere, unspecified severity, without behavioral disturbance, psychotic disturbance, mood disturbance, and anxiety; Z86.73 Personal history of transient ischemic attack (TIA), and cerebral infarction without residual deficits; Z16.35 Resistance to multiple antimicrobial drugs; N35.9 Urethral stricture, unspecified; I27.2 Other secondary pulmonary hypertension; Z98.49 Cataract extraction status, unspecified eye
CPT/HCPCS: 36415; 36600; 71010; 76770; 80048; 80053; 80170-TC; 80202-TC; 81000-TC; 82803-TC; 83605; 83735-TC; 83880; 84100-TC; 84153; 84443-TC; 84484; 85007; 85025; 85027; 85610-TC; 85730-TC; 86480; 87040-TC; 87070-TC; 87081; 87086; 87186-TC; 87205-TC; 92610-GN; 93005; 93306; 94640; 94660; 94760; C1751; J0153; J0295; J0692; J1030; J1580; J1940; J2060; J2185; J2370; J2543; J2930; J3370; J3480; J3490; J7030; J7040; J7042; J7050; J7060; P9046